=== PATIENT | male | born 2000 | race Caucasian/White ===

== ENCOUNTER 2024-12-05 20:55 | Emergency (ER) | payer SELFPAY ==
[2024-12-05] VITALS (13 sets, daily range): BP systolic 158–161; BP diastolic 95–100; PULSE 82–108; TEMP 36.9; O2SAT 99; BMI 25.1
--- NOTE | 2024-12-05 21:13 | ECG_ITS ---
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 Measurements Intervals Ransom Rate: 96 P: 64 DC: 136 QRS: 76 QRSD: 80 T: -50 QT: 338 QTc: 392 Interpretive Statements 1100 Sinus rhythm 4664 Twave abnormality, possible inferior ischemia 9150 abnormal ECG Compared to ECG 01/07/2020 03:39:13 Possible ischemia now present Electronically Signed On 12-06-2024 7:46:03 EDT by GUY CORONA M.D.
--- NOTE | 2024-12-05 21:16 | ED.GENADUL1 ---
Documented by User: [email or web address] Retana 12/05/24 21:42 HPI HPI - General Adult General Chief complaint: Dizziness Stated complaint: LIGHT HEADED, BRAIN FOG, WANTS TO PASS OUT Time Seen by Provider: 12/05/24 21:07 Source: patient Mode of arrival: walk-in Limitations: no limitations History of Present Illness HPI narrative: Patient is a 24-year-old male presents to the ER with a myriad of complaints. Patient notes for the past 2 months he has been experiencing palpitations in his chest nearly daily happen mostly at night when he lays back to rest. He denies any shortness of breath. States he is fairly physically fit and exercises regularly without exertional symptoms. He will occasionally get headaches to on the right buddhism region that come and go. Patient states overall he feels like he has not present in his body. He denies feeling depressed or suicidal. States he gets anxiety about his symptoms but feels like he is not present in his own head, describing an out of body sensation art times. Patient denies any fever or known COVID exposure he reports a closed head injury 1 year ago that he was evaluated for without residual symptoms. He describes his head as brain fog at times. Patient states he recently moved into a new apartment and mother feels there could be something they are triggering his symptoms. Reports anxiety surrounding the episodes of symptoms but otherwise does not use coffee, caffeine, alcohol or drugs. 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 Onset (ago): minute(s) Location: Reports head and chest Severity: mild Relieving factors: Reports none Exacerbating factors: Reports none Associated symptoms: Reports headaches; Denies chest pain, cough, diaphoresis, fever/chills, syncope or weakness Treatments prior to arrival: Reports none Related Data Home Medications ?Medication ?Instructions ?Recorded ?Confirmed No Known Home Medications 12/05/24 12/05/24 Allergies Allergy/AdvReac Type Severity Reaction Status Date / Time No Known Drug Allergies Allergy Verified 12/05/24 21:13 Review of Systems ROS Constitutional Reports: other ( Brain fog. ); Denies: fever or chills Eyes Denies: change in vision or blurry vision Ears, nose, mouth, and throat Denies: throat pain or neck pain Cardiovascular Reports: palpitations; Denies: chest pain, edema, swelling of feet/ankles or lightheadedness Respiratory Denies: shortness of breath, cough or wheezing Gastrointestinal Denies: abdominal pain, nausea, vomiting, coffee grounds in vomit, heartburn, diarrhea, constipation, bloating, change in bowel habits, blood in stool or mucus in stool Genitourinary Denies: painful urination, urinary frequency or urinary urgency Musculoskeletal Denies: back pain, neck pain, extremity pain, extremity swelling or joint pain Integumentary/Breast Denies: rash, itching, redness, skin pain or changes in skin color Neurological Reports: headache; Denies: numbness in extremities, weakness in extremities, confusion, difficulty communicating thoughts or seizure-like activity Psychiatric Denies: anxiety or mood swings Hematologic/Lymphatic Denies: easy bruising Allergic/Immunologic Denies: hives PFSH PFSH Social History Little interest or pleasure in doing things: not at all Feeling down, depressed, or hopeless: not at all Exam Narrative Exam Narrative: Vital signs and nurses notes reviewed. The patient is not hypoxic. General: The patient appears well and in no apparent distress. Patient is resting comfortably on cart. Skin: Warm, dry, no pallor noted. The patient has no evidence of rash, petechiae, or purpura noted. Head: Normocephalic, atraumatic, no temporal arterial tenderness Neck: Supple, trachea mid-line, no tenderness, no lymphadenopathy. No meningeal signs. No nuchal rigidity. Eye: Pupils are equal, round and reactive to light, EOMI Ears, Nose, Mouth, and Throat: Oral mucosa is moist, TMs are clear bilaterally, no hemotympanum noted. Cardiovascular: Regular Rate and Rhythm, no prominent murmur. Respiratory: Patient is in no distress, no accessory muscle use, lungs are clear to auscultation, no wheezing, rales or rhonchi Back: non-tender, no CVA tenderness Musculoskeletal: normal ROM, no tenderness, no swelling, normal strength 5/5. Normal pulses to radial 2+ bilaterally and 2+ at DP and PT bilaterally and symmetrically. GI: Normal bowel sounds, no tenderness to palpation, no masses appreciated. No rebound, guarding, or rigidity noted. Neurological: A&O x4, normal equal channel rebuilder strength, The patient is not ataxic. The patient has normal speech. The patient has normal coordination. . Normal motor and sensory observed. Psychiatric: Cooperative Constitutional Vital Signs, click to edit/add: Last Vital Signs Temp 98.4 F 12/05/24 21:08 Pulse 93 H 12/05/24 21:08 Resp 18 12/05/24 21:08 BP 158/100 H 12/05/24 21:08 Pulse Ox 99 12/05/24 21:08 O2 Del Method Room Air 12/05/24 21:08 Course Vital Signs Vital signs: Vital Signs Temperature 98.4 F 12/05/24 21:08 Pulse Rate 93 H 12/05/24 21:08 Respiratory Rate 18 12/05/24 21:08 Blood Pressure 158/100 H 12/05/24 21:08 Pulse Oximetry 99 12/05/24 21:08 Oxygen Delivery Method Room Air 12/05/24 21:08 Temperature 98.4 F 12/05/24 21:08 Pulse Rate 93 H 12/05/24 21:08 Respiratory Rate 18 12/05/24 21:08 Blood Pressure 158/100 H 12/05/24 21:08 Pulse Oximetry 99 12/05/24 21:08 Oxygen Delivery Method Room Air 12/05/24 21:08 Medical Decision Making MDM Narrative Medical decision making narrative: Discussed patient's history he reports his head injury was over a year and a half ago, he had headaches for 2 weeks and then symptoms completely resolved. He has been in his new apartment for the past 4 months with symptoms only starting the past 2 months patient notes that he gets very anxious about his symptoms but does not believe there is an immediate cause. He denies any concerns for car monoxide or other process but admits that the roof in his apartment is not good and there could be some mold issues but he does not have any difficulty breathing or asthma. He is aware that his symptoms are more likely acute on chronic and that we are checking labs today and some imaging with EKG but may not find definitive cause. Lab Data Labs: Lab Results 12/05/24 12/05/24 Range/Units 21:27 22:26 WBC 8.4 (4.0-11.0) 10^3/uL RBC 4.95 (4.70-6.10) 10^6/uL Hgb 15.4 (14.0-18.0) g/dL Hct 43.6 (42.0-54.0) % MCV 88.1 (80.0-94.0) fL MCH 31.1 (25.9-34.0) pg MCHC 35.3 H (29.9-35.2) g/dL RDW 11.6 (11.0-15.0) % Plt Count 244 (150-450) 10^3/uL MPV 8.5 L (9.5-13.5) fL Neut % (Auto) 54.6 (43.0-75.0) % Lymph % (Auto) 34.8 (20.5-60.0) % [place] % (Auto) 8.4 (1.7-12.0) % Eos % (Auto) 1.5 (0.9-7.0) % Baso % (Auto) 0.2 (0.2-2.0) % Neut # (Auto) 4.6 (1.4-6.5) 10^3/uL Lymph # (Auto) 2.9 (1.2-3.8) 10^3/uL [place] # (Auto) 0.7 (0.3-0.8) 10^3/uL Eos # (Auto) 0.1 (0.0-0.7) 10^3/uL Baso # (Auto) 0.0 (0.0-0.1) 10^3/uL Abs Immat Gran (auto) 0.04 H (0.00-0.03) 10^3/uL Imm/Tot Granulo (auto) 0.5 (0.0-0.5) % Sodium 139 (136-145) mmol/L Potassium 3.7 (3.5-5.1) mmol/L Chloride 104 (98-107) mmol/L Carbon Dioxide 29.5 (21.0-32.0) mmol/L Anion Gap 9.2 BUN 19.0 H (7.0-18.0) mg/dL Creatinine 1.01 (0.70-1.30) mg/dL Est GFR ( Amer) >60 (>=60 mL/min/1.73m^2) Est GFR (Non-Af Amer) >60 (>=60 mL/min/1.73m^2) BUN/Creatinine Ratio 18.8 Glucose 94 (74-106) mg/dL Calcium 9.1 (8.5-10.1) mg/dL Magnesium 1.8 (1.8-2.4) mg/dL Total Bilirubin 0.3 (0.2-1.0) mg/dL AST 13 L (15-37) U/L ALT 22 (16-63) U/L Alkaline Phosphatase 102 (46-116) U/L Troponin I High Sens 13.9 (4.0-76.1) pg/mL Total Protein 7.2 (6.4-8.2) g/dL Albumin 3.8 (3.4-5.0) g/dL Globulin 3.4 g/dL Albumin/Globulin Ratio 1.1 TSH & Free T4 Interp 1.540 (0.358-3.740) uIU/mL Urine Color Lt. yellow (YELLOW) Urine Clarity Clear (CLEAR) Urine pH 6.0 (5.0-9.0) Ur Specific Thrall 1.025 (1.005-1.025) Urine Protein Negative (NEG/TRACE) mg/dL Urine Glucose (UA) Negative (NEGATIVE) mg/dL Urine Ketones Negative (NEGATIVE) mg/dL Urine Occult Blood Small A (NEGATIVE) Urine Nitrite Negative (NEGATIVE) Urine Bilirubin Negative (NEGATIVE) Urine Urobilinogen 0.2 (0.2-1.0) EU/dL Ur Leukocyte Esterase Negative (NEGATIVE) Urine RBC 0-2 (0-2) #/HPF Urine WBC 0-2 A (NONE SEEN) #/HPF Ur Squamous Epith Cells Rare (NONE/RARE) #/LPF Urine Crystals None seen (None Seen) #/HPF Urine Bacteria None seen (NONE SEEN) #/HPF Urine Casts None seen (NONE SEEN) #/LPF Urine Mucus None seen (NONE SEEN) Ur Culture Indicated? No ECG Data Attestation: I personally reviewed and interpreted this ECG as follows: Interpretation: EKG interpretation: Emergency Department physician interpretation, normal sinus rhythm 96bpm, no ectopy, no ST segment elevation, normal axis. Discharge Plan Discharge Chief Complaint: Dizziness Clinical Impression: Palpitations, Cephalalgia, Hematuria Patient Disposition: Home, Self-Care Prescriptions / Home Meds: No Action No Known Home Medications Print Language: Lithuanian Instructions: Heart Palpitations (ED), Tension Headache (ED), Hematuria (ED) Additional Instructions: follow up with your family doctor next week or with Dr Smith Referrals: Physician,Non-Staff, [Primary Care Provider] - 1 week Documented by User: Celestino Rick MD 12/05/24 22:48 HPI HPI - General Adult General Chief complaint: Dizziness Stated complaint: LIGHT HEADED, BRAIN FOG, WANTS TO PASS OUT Time Seen by Provider: 12/05/24 21:07 Related Data Home Medications ?Medication ?Instructions ?Recorded ?Confirmed No Known Home Medications 12/05/24 12/05/24 Allergies Allergy/AdvReac Type Severity Reaction Status Date / Time No Known Drug Allergies Allergy Verified 12/05/24 21:13 PFSH PFSH Social History Little interest or pleasure in doing things: not at all Feeling down, depressed, or hopeless: not at all Exam Constitutional Vital Signs, click to edit/add: Last Vital Signs Temp 98.4 F 12/05/24 21:08 Pulse 93 H 12/05/24 21:08 Resp 18 12/05/24 21:08 BP 158/100 H 12/05/24 21:08 Pulse Ox 99 12/05/24 21:08 O2 Del Method Room Air 12/05/24 21:08 Course Vital Signs Vital signs: Vital Signs Temperature 98.4 F 12/05/24 21:08 Pulse Rate 93 H 12/05/24 21:08 Respiratory Rate 18 12/05/24 21:08 Blood Pressure 158/100 H 12/05/24 21:08 Pulse Oximetry 99 12/05/24 21:08 Oxygen Delivery Method Room Air 12/05/24 21:08 Temperature 98.4 F 12/05/24 21:08 Pulse Rate 93 H 12/05/24 21:08 Respiratory Rate 18 12/05/24 21:08 Blood Pressure 158/100 H 12/05/24 21:08 Pulse Oximetry 99 12/05/24 21:08 Oxygen Delivery Method Room Air 12/05/24 21:08 Medical Decision Making MDM Narrative Medical decision making narrative: Discussed patient's history he reports his head injury was over a year and a half ago, he had headaches for 2 weeks and then symptoms completely resolved. He has been in his new apartment for the past 4 months with symptoms only starting the past 2 months patient notes that he gets very anxious about his symptoms but does not believe there is an immediate cause. He denies any concerns for car monoxide or other process but admits that the roof in his apartment is not good and there could be some mold issues but he does not have any difficulty breathing or asthma. He is aware that his symptoms are more likely acute on chronic and that we are checking labs today and some imaging with EKG but may not find definitive cause. labs returned unremarkable except for small occult blood. Patient informed findings tonight to explain his symptoms. That he needs to be seen by PCP to continue workup. Discharged and provided with name of PCP Lab Data Labs: Lab Results 12/05/24 12/05/24 Range/Units 21:27 22:26 WBC 8.4 (4.0-11.0) 10^3/uL RBC 4.95 (4.70-6.10) 10^6/uL Hgb 15.4 (14.0-18.0) g/dL Hct 43.6 (42.0-54.0) % MCV 88.1 (80.0-94.0) fL MCH 31.1 (25.9-34.0) pg MCHC 35.3 H (29.9-35.2) g/dL RDW 11.6 (11.0-15.0) % Plt Count 244 (150-450) 10^3/uL MPV 8.5 L (9.5-13.5) fL Neut % (Auto) 54.6 (43.0-75.0) % Lymph % (Auto) 34.8 (20.5-60.0) % [place] % (Auto) 8.4 (1.7-12.0) % Eos % (Auto) 1.5 (0.9-7.0) % Baso % (Auto) 0.2 (0.2-2.0) % Neut # (Auto) 4.6 (1.4-6.5) 10^3/uL Lymph # (Auto) 2.9 (1.2-3.8) 10^3/uL [place] # (Auto) 0.7 (0.3-0.8) 10^3/uL Eos # (Auto) 0.1 (0.0-0.7) 10^3/uL Baso # (Auto) 0.0 (0.0-0.1) 10^3/uL Abs Immat Gran (auto) 0.04 H (0.00-0.03) 10^3/uL Imm/Tot Granulo (auto) 0.5 (0.0-0.5) % Sodium 139 (136-145) mmol/L Potassium 3.7 (3.5-5.1) mmol/L Chloride 104 (98-107) mmol/L Carbon Dioxide 29.5 (21.0-32.0) mmol/L Anion Gap 9.2 BUN 19.0 H (7.0-18.0) mg/dL Creatinine 1.01 (0.70-1.30) mg/dL Est GFR ( Amer) >60 (>=60 mL/min/1.73m^2) Est GFR (Non-Af Amer) >60 (>=60 mL/min/1.73m^2) BUN/Creatinine Ratio 18.8 Glucose 94 (74-106) mg/dL Calcium 9.1 (8.5-10.1) mg/dL Magnesium 1.8 (1.8-2.4) mg/dL Total Bilirubin 0.3 (0.2-1.0) mg/dL AST 13 L (15-37) U/L ALT 22 (16-63) U/L Alkaline Phosphatase 102 (46-116) U/L Troponin I High Sens 13.9 (4.0-76.1) pg/mL Total Protein 7.2 (6.4-8.2) g/dL Albumin 3.8 (3.4-5.0) g/dL Globulin 3.4 g/dL Albumin/Globulin Ratio 1.1 TSH & Free T4 Interp 1.540 (0.358-3.740) uIU/mL Urine Color Lt. yellow (YELLOW) Urine Clarity Clear (CLEAR) Urine pH 6.0 (5.0-9.0) Ur Specific Thrall 1.025 (1.005-1.025) Urine Protein Negative (NEG/TRACE) mg/dL Urine Glucose (UA) Negative (NEGATIVE) mg/dL Urine Ketones Negative (NEGATIVE) mg/dL Urine Occult Blood Small A (NEGATIVE) Urine Nitrite Negative (NEGATIVE) Urine Bilirubin Negative (NEGATIVE) Urine Urobilinogen 0.2 (0.2-1.0) EU/dL Ur Leukocyte Esterase Negative (NEGATIVE) Urine RBC 0-2 (0-2) #/HPF Urine WBC 0-2 A (NONE SEEN) #/HPF Ur Squamous Epith Cells Rare (NONE/RARE) #/LPF Urine Crystals None seen (None Seen) #/HPF Urine Bacteria None seen (NONE SEEN) #/HPF Urine Casts None seen (NONE SEEN) #/LPF Urine Mucus None seen (NONE SEEN) Ur Culture Indicated? No Discharge Plan Discharge Chief Complaint: Dizziness Clinical Impression: Palpitations, Cephalalgia, Hematuria Patient Disposition: Home, Self-Care Prescriptions / Home Meds: No Action No Known Home Medications Print Language: Lithuanian Instructions: Heart Palpitations (ED), Tension Headache (ED), Hematuria (ED) Additional Instructions: follow up with your family doctor next week or with Dr Smith Referrals: Physician,Non-Staff, MD [Primary Care Provider] - 1 week
[2024-12-05 21:39] LABS: Basophils Percent Auto 0.2 % (0.2-2.0); Eosinophils Absolute Auto 0.1 10^3/uL (0.0-0.7); Eosinophils Percent Auto 1.5 % (0.9-7.0); Hematocrit 43.6 % (42.0-54.0); Hemoglobin 15.4 g/dL (14.0-18.0); Immature Granulocytes Abs Auto 0.04 10^3/uL (0.00-0.03); Immature Granulocytes Pct Auto 0.5 % (0.0-0.5); Lymphocytes Absolute Auto 2.9 10^3/uL (1.2-3.8); Lymphocytes Percent Auto 34.8 % (20.5-60.0); Mean Corpuscular HGB Conc 35.3 g/dL (29.9-35.2); Mean Corpuscular Hemoglobin 31.1 pg (25.9-34.0); Mean Corpuscular Volume 88.1 fL (80.0-94.0); Mean Platelet Volume 8.5 fL (9.5-13.5); Monocytes Absolute Auto 0.7 10^3/uL (0.3-0.8); Monocytes Percent Auto 8.4 % (1.7-12.0); Neutrophils Absolute Auto 4.6 10^3/uL (1.4-6.5); Neutrophils Percent Auto 54.6 % (43.0-75.0); Platelet Count 244 10^3/uL (150-450); Red Blood Count 4.95 10^6/uL (4.70-6.10); Red Cell Distribution Width 11.6 % (11.0-15.0); White Blood Count 8.4 10^3/uL (4.0-11.0)
[2024-12-05] MEDS: KETOROLAC TROMETHAMINE 60 MG/2 ML VIAL IM (21:43)
[2024-12-05] MEDS: ACETAMINOPHEN 500 MG TABLET 1000 MG PO (21:43)
[2024-12-05 21:56] LABS: Alanine Aminotransferase 22 U/L (16-63); Albumin Globulin Ratio 1.1; Albumin Level 3.8 g/dL (3.4-5.0); Alkaline Phosphatase 102 U/L (46-116); Anion Gap 9.2; Aspartate Amino Transferase 13 U/L (15-37); BUN Creatinine Ratio 18.8; Bilirubin Total 0.3 mg/dL (0.2-1.0); Calcium 9.1 mg/dL (8.5-10.1); Carbon Dioxide 29.5 mmol/L (21.0-32.0); Chloride 104 mmol/L (98-107); Estimated GFR (African America >60 (>=60 mL/min/1.73m^2); Estimated GFR (Non-African Ame >60 (>=60 mL/min/1.73m^2); Globulin 3.4 g/dL; Glucose 94 mg/dL (74-106); Magnesium 1.8 mg/dL (1.8-2.4); Potassium 3.7 mmol/L (3.5-5.1); Sodium 139 mmol/L (136-145); Total Protein 7.2 g/dL (6.4-8.2); Troponin I High Sensitivity 13.9 pg/mL (4.0-76.1)
[2024-12-05 22:32] LABS: Bilirubin Urine NEGATIVE (NEGATIVE); Blood Urine SMALL (NEGATIVE); Clarity Urine CLEAR (CLEAR); Color Urine LT. YELLOW (YELLOW); Glucose Urine UA NEGATIVE (NEGATIVE); Ketones Urine NEGATIVE (NEGATIVE); Leukocyte Esterase Urine NEGATIVE (NEGATIVE); Nitrite Urine NEGATIVE (NEGATIVE); Protein Urine NEGATIVE (NEG/TRACE); Specific Gravity Urine 1.025 (1.005-1.025); Urobilinogen Urine 0.2 EU/dL (0.2-1.0)
[2024-12-05 22:36] LABS: Bacteria Urine NONE SEEN #/HPF (NONE SEEN); Cast Seen? NONE SEEN #/LPF (NONE SEEN); Crystals Seen? None Seen #/HPF (None Seen); Mucus Urine NONE SEEN (NONE SEEN); RBC Urine 0-2 #/HPF (0-2); Squamous Epithelial Cell Urine RARE #/LPF (NONE/RARE); Urine Culture Indicated NO; WBC Urine 0-2 #/HPF (NONE SEEN)
== END 2024-12-05 23:01 | disposition home or self-care (01) ==
PROVIDERS: Personal Emergency Response Attendant; Emergency Provider Internal Medicine
DX: R00.2 Palpitations (principal); R51.9 Headache, unspecified; R31.9 Hematuria, unspecified
CPT/HCPCS: 36415; 71045; 80053; 81001; 83735; 84443; 84484; 85025; 93005; 96372; 99285; J1885